=== PATIENT | female | born 1965 | race Two or more races ===

== ENCOUNTER 2022-01-18 15:54 | Outpatient (REF) | payer OTHER, SELFPAY ==
--- NOTE | ~2022-01-18 | XR_ITS ---
EXAMINATION: XR CHEST CLINICAL INFORMATION: J45.909 - Unspecified asthma, uncomplicated COMPARISON: None TECHNIQUE: 2 views of the chest were obtained. FINDINGS: The lungs are clear. Heart size normal. Vascularity normal. No hyperinflation, infiltrate, or effusion. The hilar and mediastinal contours are normal. No visible acute bony abnormality. XR/XR chest 2V IMPRESSION: Unremarkable examination.
== END 2022-01-18 15:55 | disposition home or self-care (01) ==
LOC: HO.XRAY 15:54
PROVIDERS: PCP Internal Medicine Endocrinology, Diabetes & Metabolism; Visit Provider Hospitalist
DX: J45.909 Unspecified asthma, uncomplicated (principal); C50.919 Malignant neoplasm of unspecified site of unspecified female breast
CPT/HCPCS: 71046

== ENCOUNTER 2023-01-30 13:40 | Outpatient (REF) | payer OTHER, MEDICAID, SELFPAY | END 2023-01-30 13:41 | disposition home or self-care (01) | LOC: HO.XRAY 13:40 | PROVIDERS: PCP Internal Medicine Endocrinology, Diabetes & Metabolism; Visit Provider Hospitalist | DX: J45.909 Unspecified asthma, uncomplicated (principal); R05.9 Cough, unspecified; R21 Rash and other nonspecific skin eruption | CPT/HCPCS: 71046 ==

== ENCOUNTER 2023-11-28 13:53 | Outpatient (AMB) | payer OTHER, MEDICAID, SELFPAY ==
[2023-11-28 14:05] VITALS: PULSE 88; O2SAT 98; BMI 44.9
--- NOTE | 2023-11-28 14:05 | MHC.OFFVIS ---
Vital Signs 11/28/23 14:05 Height 5 ft 3 in Weight 253 lb 12.033 oz BMI 44.9 Pulse 88 Pulse Source Pulse Oximeter Pulse Oximetry (%) 98 Oxygen Delivery Method Room Air Intake Visit Reasons: asthma Web Application Tester Required: No Allergies Lisinopril Allergy (Unknown, Uncoded 11/28/23 14:07) Cough HPI Comments Details: 01/18/2022 the patient is here for a pulmonary follow-up visit. The patient is a 58-year-old woman with a known history of asthma and recently was diagnosed with breast cancer. She did undergo surgery. Her cancer was both ER and NV positive. Therefore she was placed on hormonal therapy. The patient will continue following closely with her oncologist and surgeon. Seems to be recovering well. No evidence of any residual cancer. In the meantime she has been having worsening shortness of breath and wheezing. She feels is related to the allergy season. She was taken Symbicort in addition to a short-acting beta agonists. However, she ran out of her medication. Therefore the patient came in to be further evaluated. Currently she is feeling better. Will make sure she has all her medications available. I did not see an x-ray when I did review the imaging studies of [facility]. Specially with history of breast cancer and her worsening symptms of shortness of breath. He will have an x-ray prior to leaving the process. Otherwise the patient continues to respond well to her therapy will follow-up in a year's time. 01/30/2023 the patient is here for pulmonary follow-up visit. Overall the patient has been doing okay. She had a bad bout in the springtime with her allergies. She was taking the Symbicort and also required her rescue inhaler often. Now things are getting a little better. She still has a cough that is bothering her. She was given codeine and also Dr. Most sweet but does not appear to be effective. She does complaint of a dry cough moderate severity. Already feeling a little better since the allergies are settling down. During that episode she was also having some pleuritic chest discomfort although is better at this time. The the will plan to continue her on Symbicort and she seems to be doing better and she needs to continue with the allergy medicine including Singulair and antihistamine therapy. Will consider adding a muscarinic antagonist in the future if she continues to be symptomatic. Otherwise follow-up in the springtime usually when does this when she has worse symptoms. 11/28/2023 the patient is here for a pulmonary follow-up visit. Overall she is doing well. She does complaint during the season because her breathing gets worse. Typically the spring causes some more symptoms. She also complains of some raspiness of her voice. Typically when she lays down. We did talk about potential nasal congestion and postnasal drip that could be contributing to her symptoms. We did talk about trying Neti bottle which she is willing to try as long as she uses distilled water. The patient has been cancer free now for more than a year which is reassuring. She continues on the Symbicort is the seems to work best. She did not tolerate the breztri inhaler because it caused additional cough. Therefore she will continue with current respiratory therapy in addition to her allergy medicines. [facility] Medical History (Updated 11/28/23 @ 19:26 by Joby Palmer MD) Chronic allergic rhinitis Cough Social History (Updated 01/18/22 @ 15:32 by SHAISTA Cherry) Patient Tobacco Use Status: Former Tobacco user Tobacco use type: Cigarette Years Smoked: 20 Years Review of Systems Const Denies fever(s) and Denies malaise Eyes Denies change in vision ENT Reports nasal congestion, Reports nasal discharge and Reports post nasal drip Card Denies palpitations Resp Reports cough and Reports wheezing GI Reports no additional complaints Musc Reports no additional complaints Skin/Breast Denies rash Endo Denies palpitations Rosalio/Lymph Reports as per HPI Aller/Immun Reports wheezing Physical Exam Vital Signs: Last Vital Signs Pulse 88 11/28/23 14:05 Pulse Ox 98 11/28/23 14:05 Oxygen Delivery Method Room Air 11/28/23 14:05 BMI result Body Mass Index 44.9 Const General: alert Orientation/consciousness: patient oriented x3 Neck Neck: Yes supple Chest Chest palpation & inspection: normal inspection of the chest Resp Auscultation: clear to auscultation bilaterally, no rhonchi and no wheezes Cardio Rate: regular rate Rhythm: regular rhythm Heart sounds: S1 normal heart sound present and S2 normal heart sound present GI Inspection: Yes normal to inspection Skin General skin exam: other ( evidence of acanthosis nigricans primarily in her upper extremities) Neuro General: patient oriented x3 Extrem General: Yes normal to inspection and Yes no clubbing, cyanosis or edema Assessment & Plan Assessment & Plan (1) Asthma: Code(s): J45.909 - Unspecified asthma, uncomplicated Category: Medical Qualifiers: Asthma complication type: uncomplicated Asthma persistence: persistent Asthma severity: moderate Qualified Code(s): J45.40 - Moderate persistent asthma, uncomplicated (2) Chronic allergic rhinitis: Code(s): J30.9 - Allergic rhinitis, unspecified Category: Medical (3) Rash and nonspecific skin eruption: Comment: stable Code(s): R21 - Rash and other nonspecific skin eruption Category: Medical (4) Breast cancer: Code(s): C50.919 - Malignant neoplasm of unspecified site of unspecified female breast Category: Medical Qualifiers: Breast location: unspecified site of breast Estrogen receptor status: unspecified Laterality: unspecified laterality Patient sex: female Qualified Code(s): C50.919 - Malignant neoplasm of unspecified site of unspecified female breast Plan continue Symbicort short-acting beta agonists chest x-ray 2022 stable benzonates for cough zyrtec singulair trial rahul med sinus rinse with distilled water F/U 10-12 months Orders: Orders Pneumococcal 20 Immunization Today Z23 - Encounter for immunization Coding Level of Care Code Est Pt Level 4 (71835) Diagnoses Moderate persistent asthma without complication J45.40 Asthma complication type: uncomplicated Asthma persistence: persistent Asthma severity: moderate Chronic allergic rhinitis J30.9 Rash and nonspecific skin eruption R21 Malignant neoplasm of female breast, unspecified estrogen receptor status, unspecified laterality, unspecified site of breast C50.919 Breast location: unspecified site of breast Estrogen receptor status: unspecified Laterality: unspecified laterality Patient sex: female Time Spent (min) 16
== END 2023-11-28 14:24 | disposition home or self-care (01) ==
PROVIDERS: PCP Internal Medicine Endocrinology, Diabetes & Metabolism; Visit Provider Hospitalist
DX: J45.40 Moderate persistent asthma, uncomplicated (principal); J30.9 Allergic rhinitis, unspecified; R21 Rash and other nonspecific skin eruption; C50.919 Malignant neoplasm of unspecified site of unspecified female breast; Z23 Encounter for immunization
CPT/HCPCS: 99214

== ENCOUNTER → 2023-11-28 13:53 | Outpatient (BNVA) | payer OTHER, SELFPAY | PROVIDERS: PCP Internal Medicine Endocrinology, Diabetes & Metabolism; Visit Provider Hospitalist | DX: J45.40 Moderate persistent asthma, uncomplicated (principal); J30.9 Allergic rhinitis, unspecified; R21 Rash and other nonspecific skin eruption; C50.919 Malignant neoplasm of unspecified site of unspecified female breast; Z79.899 Other long term (current) drug therapy; Z23 Encounter for immunization | CPT/HCPCS: 90471; 90677 ==

== ENCOUNTER 2024-11-29 13:32 | Outpatient (AMB) | payer OTHER, SELFPAY ==
[2024-11-29 13:37] VITALS: BP 158/96; PULSE 93; O2SAT 97; BMI 43.7
--- NOTE | 2024-11-29 13:37 | A.OFFVIS_ITS ---
Vital Signs 11/29/24 13:37 Height 5 ft 3 in Weight 246 lb 14.684 oz BMI 43.7 BP 158/96 H Blood Pressure Location Lt brachial Position Sitting Pulse 93 Pulse Source Pulse Oximeter Pulse Oximetry (%) 97 Oxygen Delivery Method Room Air Intake Visit Reasons: 1yr f/u Asthma Allergies oxycodone Allergy (Mild, Uncoded 11/29/24 13:42) Itching Lisinopril Allergy (Unknown, Uncoded 11/28/23 14:07) Cough HPI Comments Details: 01/18/2022 the patient is here for a pulmonary follow-up visit. The patient is a 58-year-old woman with a known history of asthma and recently was diagnosed with breast cancer. She did undergo surgery. Her cancer was both ER and [place] positive. Therefore she was placed on hormonal therapy. The patient will continue following closely with her oncologist and surgeon. Seems to be recovering well. No evidence of any residual cancer. In the meantime she has been having worsening shortness of breath and wheezing. She feels is related to the allergy season. She was taken Symbicort in addition to a short-acting beta agonists. However, she ran out of her medication. Therefore the patient came in to be further evaluated. Currently she is feeling better. Will make sure she has all her medications available. I did not see an x-ray when I did review the imaging studies of [facility]. Specially with history of breast cancer and her worsening symptms of shortness of breath. He will have an x-ray prior to leaving the process. Otherwise the patient continues to respond well to her therapy will follow-up in a year's time. 01/30/2023 the patient is here for pulmonary follow-up visit. Overall the patient has been doing okay. She had a bad bout in the springtime with her allergies. She was taking the Symbicort and also required her rescue inhaler often. Now things are getting a little better. She still has a cough that is bothering her. She was given codeine and also Dr. Most sweet but does not appear to be effective. She does complaint of a dry cough moderate severity. Already feeling a little better since the allergies are settling down. During that episode she was also having some pleuritic chest discomfort although is better at this time. The the will plan to continue her on Symbicort and she seems to be doing better and she needs to continue with the allergy medicine including Singulair and antihistamine therapy. Will consider adding a muscarinic antagonist in the future if she continues to be symptomatic. Otherwise follow-up in the springtime usually when does this when she has worse symptoms. 11/28/2023 the patient is here for a pulmonary follow-up visit. Overall she is doing well. She does complaint during the season because her breathing gets w orse. Typically the spring causes some more symptoms. She also complains of some raspiness of her voice. Typically when she lays down. We did talk about potential nasal congestion and postnasal drip that could be contributing to her symptoms. We did talk about trying Neti bottle which she is willing to try as long as she uses distilled water. The patient has been cancer free now for more than a year which is reassuring. She continues on the Symbicort is the seems to work best. She did not tolerate the breztri inhaler because it caused additional cough. Therefore she will continue with current respiratory therapy in addition to her allergy medicines. 11/29/2024 the patient is here for pulmonary follow-up visit. Overall the patient has been doing okay from a respiratory status. She is having more allergy symptoms. Has significant nasal congestion postnasal drip and cough. Also getting some inflammation around the eyes. The patient does take Zyrtec with partial improvement of the symptoms and recently started taking fluticasone with also some improvement. She was seen Allergy in the past but they subsequently retired so will go ahead and refer her to Dr. Covington. In the meantime she continues on her respiratory therapy with good effect for her asthma. Seems to be in good control. From a breast cancer standpoint the patient did well and she is still in remission doing very well and she recently had her hysterectomy and oophorectomy because of increased risk for cancer. The patient also complains of significant dyspepsia. She had a barium swallow or endoscopy before and she was told that everything was okay. She does take omeprazole therefore, will add a H2 genevieve that she can take at nighttime to help her with her dyspepsia but also help with her allergies. [facility] Medical History (Updated 12/01/24 @ 22:48 by Joby Palmer MD) Allergies Chronic allergic rhinitis Cough Surgical History (Updated 11/29/24 @ 13:53 by Nelda Agarwal CMA) H/O tubal ligation History of hysterectomy History of lumpectomy of right breast H/O gastric sleeve H/O hernia repair Social History Patient Tobacco Use Status: Former Tobacco user Tobacco use type: Cigarette Years Smoked: 20 Years Review of Systems Const Denies chills, Denies fatigue, Denies fever(s), Denies weight gain and Denies weight loss Eyes Denies change in vision ENT Denies dizziness Card Denies chest pain, Denies leg edema, Denies lightheadedness, Denies palpitations, Reports dyspnea on exertion, Denies orthopnea and Denies other Resp Reports cough, Reports dyspnea on exertion and Reports wheezing GI Denies hematochezia and Denies change in stool character Musc Denies abnormal gait, Denies muscle weakness, Denies numbness, Denies radiating pain into limb and Denies tingling Skin/Breast Denies rash Neuro Denies abnormal gait, Denies dizziness, Denies numbness and Denies tingling Endo Denies fatigue and Denies palpitations Rosalio/Lymph Reports as per HPI Aller/Immun Reports wheezing Physical Exam Vital Signs: Last Vital Signs Pulse 93 11/29/24 13:37 BP 158/96 H 11/29/24 13:37 Pulse Ox 97 11/29/24 13:37 Oxygen Delivery Method Room Air 11/29/24 13:37 BMI result Body Mass Index 43.7 Const General: alert Orientation/consciousness: patient oriented x3 Neck Neck: Yes supple Chest Chest palpation & inspection: normal inspection of the chest Resp Auscultation: clear to auscultation bilaterally, no rhonchi and no wheezes Cardio Rate: regular rate Rhythm: regular rhythm Heart sounds: S1 normal heart sound present and S2 normal heart sound present GI Inspection: Yes normal to inspection Skin General skin exam: other ( evidence of acanthosis nigricans primarily in her upper extremities) Neuro General: patient oriented x3 Extrem General: Yes normal to inspection and Yes no clubbing, cyanosis or edema Assessment & Plan Assessment & Plan (1) Asthma: Code(s): J45.909 - Unspecified asthma, uncomplicated Category: Medical Qualifiers: Asthma complication type: uncomplicated Asthma persistence: persistent Asthma severity: moderate Qualified Code(s): J45.40 - Moderate persistent asthma, uncomplicated (2) Chronic allergic rhinitis: Code(s): J30.9 - Allergic rhinitis, unspecified Category: Medical (3) Rash and nonspecific skin eruption: Comment: stable Code(s): R21 - Rash and other nonspecific skin eruption Category: Medical (4) Breast cancer: Code(s): C50.919 - Malignant neoplasm of unspecified site of unspecified female breast Category: Medical Qualifiers: Breast location: unspecified site of breast Estrogen receptor status: unspecified Laterality: unspecified laterality Patient sex: female Qualified Code(s): C50.919 - Malignant neoplasm of unspecified site of unspecified female breast (5) Allergies: Code(s): T78.40XA - Allergy, unspecified, initial encounter Category: Medical Qualifiers: Encounter type: initial encounter Qualified Code(s): T78.40XA - Allergy, unspecified, initial encounter Plan continue Symbicort short-acting beta agonists chest x-ray 2022 stable benzonates for cough zyrtec singulair start Cimetidine startAsteline nasal spray Allergy referral F/U 10-12 months Orders: Referrals Allergy & Immunology Referral J30.9 - Allergic rhinitis, unspecified, J45.909 - Unspecified asthma, uncomplicated, T78.40XA - Allergy, unspecified, initial encounter Medications: New azelastine administer into each nostril 2 sprays intranasal BID 30 mL 6RF 30 days cimetidine 800 mg PO BEDTIME 30 tabs 6RF 30 days Coding Level of Care Code Est Pt Level 4 (55914) Diagnoses Moderate persistent asthma without complication J45.40 Asthma complication type: uncomplicated Asthma persistence: persistent Asthma severity: moderate Chronic allergic rhinitis J30.9 Rash and nonspecific skin eruption R21 Malignant neoplasm of female breast, unspecified estrogen receptor status, unspecified laterality, unspecified site of breast C50.919 Breast location: unspecified site of breast Estrogen receptor status: unspecified Laterality: unspecified laterality Patient sex: female Allergy, initial encounter T78.40XA Encounter type: initial encounter Time Spent (min) 16
--- OUTSIDE RECORDS SUMMARY | 2024-11-29 14:16 | XMS_ITS | Clinical Summary ---
Author Organization [address] [place] [address] Address [address] [place] [address] Phone Care Team Providers Care Grounds Restoration Specialist Name Role Phone Cally Dietz MD Primary Care Provid er Allergies Active Allergy Reactions Criticality Noted Date Comments Lisinopril 03/28/2017 Oxycodone Nausea And Vomiting 05/07/2024 Shellfish Derived 03/28/2017 Medications albuterol HFA (PROAIR HFA ; PROVENTIL HFA ; VENTOLIN HFA) 90 mcg/actuation inhaler Inhale 2 Puffs into the lungs every 4 hours as needed for Wheezing. 0 Active amitriptyline (ELAVIL) 25 mg tablet Take 1 Tablet by mouth daily. 4 Active anastrozole (ARIMIDEX) 1 mg Take 1 Tablet by mouth daily. 4 Active budesonide-form oteroL (SYMBICORT) 160-4.5 mcg/actuation inhaler INHALE 2 PUFFS BY MOUTH TWICE DAILY. RINSE MOUTH AFTER USE 7 Active EPINEPHrine (EpiPen 2-Donald) 0.3 mg/0.3 mL injection 0.3 mg mL. 7 Active escitalopram (LEXAPRO) 10 mg tablet Take 1 Tab by mouth daily. 0 Active hydroCHLOROthia zide (HYDRODIURIL) 25 mg tablet Take 1 Tab by mouth daily. 0 Active LORazepam (ATIVAN) 0.5 mg tablet Take 1 Tab by mouth 2 times daily as needed for Anxiety. 1 Active losartan (COZAAR) 50 mg tablet 1 Tablet. 7 Active montelukast (SINGULAIR) 10 mg tablet 1 Tablet. 7 Active omeprazole (PriLOSEC) [address] capsule Take 1 Capsule by mouth daily. 4 Active topiramate (TOPAMAX SPRINKLE) 25 mg capsule TAKE 1 CAPSULE BY MOUTH TWICE DAILY DIRECTED 4 Active valsartan-hydro CHLOROthiazide (DIOVAN-HCT) 320-25 mg per tablet Take 1 Tablet by mouth daily. 4 Active semaglutide (Wegovy) 1 mg/0.5 mL injection pen ADMINISTER 1 MG UNDER THE SKIN WEEKLY DIRECTED 4 Active Active Problems Problem Noted Date Diagnosed Date Anxiety disorder 07/17/2024 Depression 07/17/2024 Fibromyalgia 07/17/2024 Proteinuria 07/23/2010 Essential hypertension, benign 05/07/2010 Immunizations Name Administration Dates Next Due Hepatitis B (Ceoescn-Z-Rrfnp , Recombivax HB-Adult) 19yo and older 09/21/2010 Influenza trivalent, 0.5mL, preservative free (Fluarix; FluLaval; Fluzone) ages 6mo and older (Afluria) 3 years and older 04/23/2010 Tdap Tetanus diptheria acell ular pertussis (Boostrix; Adacel) 7yo and older 07/23/2010 Surgical History Surgery Date Site/Laterality Comments TUBAL LIGATION PROCEDURE: HISTORICAL TUBAL LIGATION OTHER SURGICAL HISTORY PROCEDURE: [place] LYSIS OF ADHESIONS SALPINX/OVARY WISDOM TOOTH EXTRACTION PROCEDURE: HISTORICAL WISDOM TEETH EXTRACTION OTHER SURGICAL HISTORY 2020 Right PROCEDURE: HISTORY OTHER; COMMENT: mastectomy Medical History Medical History Date Comments Fibromyalgia DX:Fibromyalgia Asthma DX:Asthma Anxiety disorder DX:Anxiety diso rder Depression DX:Depression Family history of diabetes mellitus 07/16/2010 DX:Family history of diabetes mellitus Proteinuria 07/23/2010 DX:Proteinuria Family History Medical History Relation Name Comments Diabetes Aunt 1 Maternal Diabetes Brother 1 Diabetes Father Stroke Father Diabetes Maternal Grandmother Stroke Mother Other cancer Mother's side 1 Relation Name Status Comments Aunt 1 Aunt 2 Brother 1 Brother 2 Father Maternal Grandmother Mother Mother's side 1 Mother's side 2 Social History Tobacco Use Types Packs/Day Years Used Date Smoking Tobacco: Former Smokeless Tobacco: Never Alcohol Use Standard Drinks/Week Comments No 0 (1 standard drink = 0.6 oz pur e alcohol) Comments Unknown Sex and Gender Information Value Date Recorded Sex Assigned at Not on file Legal Sex Female 8:27 AM EST Gender Identity Not on file Sexual Orientation Not on file Obstetrics History Last Filed Vital Signs Vital Sign Reading Time Taken Comments Blood Pressure 115/81 05/07/2024 9:56 AM EDT Pulse 94 05/07/2024 9:56 AM EDT Temperature - - Respiratory Rate - - Oxygen Saturation - - Inhaled Oxygen Concentration - - Weight 106 kg (234 lb 6.4 oz) 05/07/2024 9:56 AM EDT Height 160 cm (5' 3 ) 05/07/2024 9:56 AM EDT Body Mass Index 41.52 05/07/2024 9:56 AM EDT Plan of Treatment Upcoming Encounters Date Type Department Care Team (Late st Contact Info) Description 12/03/2024 11:30 AM EDT Office Visit General Surgery - [facility] [address] [facility] [address] [place] [phone] Starr Ha MD [address] [facility] [address] [place] [address] Health Maintenance Due Date Last Done Comments Breast Cancer Screening 1966 COVID-19 Vaccine (#1) 1971 Hepatitis B Vaccines (2 of 3 - 19+ 3-dose series) 10/19/2010 09/21/2010 Cervical Cancer Screening: P ap Smear 02/26/2013 02/26/2010 Pneumococcal Vaccine: 50+ Ye ars (1 of 1 - PCV) 2016 Zoster Vaccines (1 of 2) 2016 DTaP,Tdap,and Td Vaccines (2 - Td or Tdap) 07/23/2020 07/23/2010 Cholesterol Screening (Lipid Panel) 07/10/2022 07/17/2010 Colorectal Cancer Screening: Colonoscopy 07/10/2022 Depression Screening 07/10/2022 HIV Screening 07/10/2022 Hepatitis C Screening 07/10/2022 Social Influencers of Health Screening 07/10/2022 Hypertension/CHF/CAD Annual BMP Blood Test 07/23/2022 07/17/2010 Influenza Vaccine (Season Ended) 2025 04/23/20 10 HIB Vaccines Aged Out No longer eligi ble based on patient's age to complete this topic HPV Vaccines Aged Out No longer eligi ble based on patient's age to complete this topic Hepatitis A Vaccines Aged Out No long er eligible based on patient's age to complete this topic IPV Vaccines Aged Out No longer eligi ble based on patient's age to complete this topic MMR Vaccines Aged Out No longer eligi ble based on patient's age to complete this topic Meningococcal ACWY Vaccine Aged Out N o longer eligible based on patient's age to complete this topic Meningococcal B Vaccine Aged Out No l onger eligible based on patient's age to complete this topic Pneumococcal Vaccine: Pediat rics (0 to 5 Years) and At-Risk Patients (6 to 64 Years) Aged Out No longer eligi ble based on patient's age to complete this topic RSV Immunization Patients Un ryan 20 months Aged Out No longer eligible b ased on patient's age to complete this topic Varicella Vaccines Aged Out No longer eligible based on patient's age to complete this topic Procedures Procedure Name Priority Date/Time Associated Diagnosis Comments ANNUAL BMP BLOOD TEST Routine 07/17/2010 LIPID PANEL Routine 07/17/2010 PAP SMEAR Routine 02/26/2010 from Last 3 Months or Most Recently Relevant to Health Maintenance Results * Annual BMP Blood Test (07/17/2010) [facility] Annual BMP Blood Test Abstracted [facility] Provider HEALTH MAINTENANCE Final Result * (ABNORMAL) Lipid panel (07/17/2010) [facility] LDL/HDL Ratio 4 0 - 4 Triglycerides 92 0 - 150 mg/dL Cholesterol 187 0 - 200 mg/dL HDL 45 >=40 mg/dL LDL Cholesterol 124(A) 0 - 100 mg/dL Blood Venous blood specimen / Unknown [facility] Provider LAB BLOOD ORDERABLES Emani l Result * Pap Smear (02/26/2010) [facility] Pap smear Negative, Abstracted [facility] Provider HEALTH MAINTENANCE Final Result from Last 3 Months or Most Recently Relevant to Health Maintenance Insurance [facility] Care Teams Grounds Restoration Specialist Relationship Specialty Start Date End Date Cally Dietz MD [address] [place] [address] [address] [place] [phone] PCP - General Endocrinology 07/17/24
--- OUTSIDE RECORDS SUMMARY | 2024-11-29 14:16 | XMS_ITS | Continuity of Care Document ---
Author Organization [facility] Address [address] [place] [address] Phone [phone] Care Team Providers Care Advanced Clinical Specialist Name Role Phone Cally Dietz M.D. 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 Ons et: 10/27/2022 Gastroesophageal reflux disease Cally Gregg M.D. Onset: 10/27/2022 Essential hypertension Niesha Barraza Onset: 10/27/2022 Asthma Cally Dietz M.D. Ons et: 10/27/2022 Fibromyalgia Cally Dietz M.D. Ons et: 10/27/2022 Migraine Cally Dietz M.D. Ons et: 10/27/2022 Proteinuria Cally Dietz M.D. Ons et: 10/27/2022 Obesity Cally Dietz M.D. Ons et: 10/27/2022 Obstructive sleep apnea syndrome Cally Quesada M.D. Onset: 10/27/2022 Bursitis of hip Cally Dietz M.D. Ons et: 10/27/2022 Osteoarthritis aClly Dietz M.D. Ons et: 10/27/2022 Intraductal carcinoma in sit u of right breast Cally Dietz M.D. Onset: 10/27/2022 Prediabetes Cally Dietz M.D. Ons et: 10/27/2022 Depressive disorder Cally Dietz M.D. 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 09/09/2024 Z68.42 Hsusnvomf582-0.5mcg/Act Aerosol inhale 2 puffs by mouth twice daily 10.2units Cally Dietz M.D. 08/17/2023 Egnpzresp130so Tablets 1 tablet by mouth five times daily for 5 days while awake 25tabs Cally Dietz M.D. 06/16/2023 [facility] Vitamin [id number] Tablets 1 by mouth every day Cally Dietz M.D. 06/13/[address] Take 1 Capsul e By Mouth Every Day 90caps Cally Dietz M.D. 10/27/2022 Escitalopram Txbeoqb16qm Tablets Take 1 Tablet By Mouth Every Day 90fito Dietz M.D. 10/21/2022 Valsartan-Hydrochlorothiazid e 320-25mg Tablets Take 1 Tablet By Mouth Every Day 90fito Dietz M.D. 10/21/2022 Amitriptyline BHD65jj Tablets Take 1 Tab let By Mouth Every Day 90fito Dietz M.D. 07/27/2022 Hydroxyzine CFM11si Tablets Take 1 Table t By Mouth Twice A Day as Needed 60tacoby Dietz M.D. 07/27/2022 Hlgutyjfesl7pb Tablets Take 1 Tablet By Mouth Every Day Unknown Montelukast Slptmd90zr Tablets 1 by mouth every day Unknown Multivitamin AdultsTablets 1 by mouth every day Cally Dietz M.D. Vitamin H518cgv (1000 Ut) Capsules 1 by mouth every day 100caps Cally Dietz M.D. Cetirizine SCO64os Tablets 1 every day a s needed Cally Dietz M.D. Lorazepam0.5mg Tablets take 1 tablet by mouth every 6 hours as needed 30tabs Cally Dietz M.D. Albuterol Sulfate(2.5mg/3ML) 0.083% Nebulizer Inhale 3 ML Via Nebulizer Every 6 Hours as Needed For Shortness Of Breath Or Whe Spencer, Joby Vnhstzmieo55fj Caps Sprinkle Take 1 Caps ule By Mouth Twice Daily as Directed 180caps Cally Dietz M.D. History Medications Tfqgvm3yg/0.5ML Solution Auto-Inject inject 1 mg weekly as directed 2ml E66Zarina Dietz M.D. 02/19/2024 - 09/09/2024 Z68.42 Wegovy0.5mg/0.5ML Solution Auto-Inject inject 0.5 mg weekly for one month 2ml E66Zarina Dietz M.D. 12/18/2023 - 02/19/2024 Z68.42 Vital Signs Date Vital Result Comment 08/20/2024 9:00am BP Systolic 104 mmHg BP Diastolic 70 mmHg Heart Rate 94 /min Height 63.5 inches 5'3.50 Weight 243.38 lb BMI (Body Mass Index) 42.4 kg/m2 Results Test Acquired Date Facility Test Result H/L Range Note Basic Metabolic Panel (8) 08/20/2024 [facility] Glucose 80 mg/dL 70-99 BUN 15 mg/dL 6-24 Sodium 144 mmol/L 134-144 Potassium 4.4 mmol/L 3.5-5.2 Chloride 109 mmol/L High 96-106 Carbon Dioxide, Total 20 mmol/L 20-29 Calcium 10.0 mg/dL 8.7-10. 2 Creatinine 1.09 mg/dL High 0.57-1. 00 eGFR 59 mL/min/1.7 3 Low >59 BUN/Creatinine Ratio 14 9-23 Comp. Metabolic Panel (14) 04/06/2024 [facility] Glucose 95 mg/dL 70-99 BUN 27 mg/dL High 6-24 Creatinine 1.38 mg/dL High 0.57-1. 00 eGFR 45 mL/min/1.7 3 Low >59 BUN/Creatinine Ratio 20 9-23 Sodium 141 mmol/L 134-144 Potassium 4.0 mmol/L 3.5-5.2 Chloride 105 mmol/L 96-106 Carbon Dioxide, Total 23 mmol/L 20-29 Calcium 10.5 mg/dL High 8.7-10. 2 1 Protein, Total 6.5 g/dL 6.0-8.5 Albumin 4.2 g/dL 3.8-4.9 Globulin, Total 2.3 g/dL 1.5-4.5 Bilirubin, Total 0.2 mg/dL 0.0-1.2 Alkaline Phosphatase 95 IU/L 44-121 Ast (Sgot) 12 IU/L 0-40 Alt (SGPT) 11 IU/L 0-32 Lipid Panel 04/06/2024 [facility] Cholesterol, Total 209 mg/dL High 100-199 Triglycerides 130 mg/dL 0-149 HDL Cholesterol 50 mg/dL >39 VLDL Cholesterol Kurt 23 mg/dL 5-40 LDL Chol Calc (Nih) 136 mg/dL High 0-99 LDL Calc Comment: TNP Hemoglobin A1c 04/06/2024 [facility] Hemoglobin A1c 5.8 % High 4.8-5.6 2 CBC With Differential/Sabina telet 04/06/2024 [facility] WBC 7.9 x10E3/uL 3.4-10. 8 RBC 4.62 x10E6/uL 3.77-5. 28 Hemoglobin 12.6 g/dL 11.1-15 .9 Hematocrit 39.1 % 34.0-46 .6 MCV 85 fL 79-97 MCH 27.3 pg 26.6-33 .0 MCHC 32.2 g/dL 31.5-35 .7 RDW 14.3 % 11.7-15 .4 Platelets 343 x10E3/uL 150-450 Neutrophils 61 % Not Estab. Lymphs 31 % Not Estab. Monocytes 6 % Not Estab. Eos 1 % Not Estab. Basos 0 % Not Estab. Immature Cells TNP Neutrophils (Absolute) 4.9 x10E3/uL 1.4-7.0 Lymphs (Absolute) 2.5 x10E3/uL 0.7-3.1 Monocytes(Absol three affiliated) 0.4 x10E3/uL 0.1-0.9 Eos (Absolute) 0.1 x10E3/uL 0.0-0.4 Baso (Absolute) 0.0 x10E3/uL 0.0-0.2 Immature Granulocytes 1 % Not Estab. Immature Grans (Abs) 0.0 x10E3/uL 0.0-0.1 NRBC TNP Hematology Comments: TNP Vitamin D, 25-Hydroxy 04/06/2024 [facility] Vitamin D, 25-Hydroxy 40.2 ng/mL 30.0-10 0.0 3 Comp. Metabolic Panel (14) 11/27/2023 [facility] Glucose 99 mg/dL 70-99 BUN 25 mg/dL High 6-24 Creatinine 1.06 mg/dL High 0.57-1. 00 eGFR 61 mL/min/1.7 3 >59 BUN/Creatinine Ratio 24 High 9-23 Sodium 142 mmol/L 134-144 Potassium 4.0 mmol/L 3.5-5.2 Chloride 104 mmol/L 96-106 Carbon Dioxide, Total 21 mmol/L 20-29 Calcium 10.3 mg/dL High 8.7-10. 2 4 Protein, Total 7.0 g/dL 6.0-8.5 Albumin 4.4 g/dL 3.8-4.9 Globulin, Total 2.6 g/dL 1.5-4.5 A/G Ratio 1.7 1.2-2.2 Bilirubin, Total <0.2 mg/dL 0.0-1.2 Alkaline Phosphatase 100 IU/L 44-121 Ast (Sgot) 18 IU/L 0-40 Alt (SGPT) 19 IU/L 0-32 Vitamin B12 11/27/2023 [facility] Vitamin B12 >2000 pg/mL High 232-124 5 Hemoglobin A1c 08/18/2023 Inhouse Hemoglobin A1c 5.9% Complete Abc With Diff 06/07/2023 [facility] WBC 10.0 K/MM3 (4.0-11 .0) RBC 4.97 M/MM3 (4.20-5 .40) HGB 12.9 GM/DL (11.7-1 5.5) HCT 42.0 % (35.7-4 5.8) MCV 84.5 FL (80.0-1 00.0) MCH 26.0 pg Low (27.0-3 4.0) MCHC 30.7 g/dL Low (33.0-3 7.0) PLT 332 K/MM3 (150-46 0) RDW-SD 45.1 FL (<47.0) MPV 9.8 FL (9.4-12 .4) Automated NRBC 0.0 #/100WBC'S Abs. NRBC 0.0 K/MM3 Neut # 8.1 K/MM3 High (1.3-7. 0) Lymph # 0.9 K/MM3 (0.8-3. 1) Arroyo# 0.8 K/MM3 (0.4-0. 9) Eo # 0.1 K/MM3 (0.0-0. 4) Baso # 0.0 K/MM3 (0.0-0. 1) Abs. Imm Gran 0.1 K/MM3 Neut 81.6 % High (44-76) Lymph 9.1 % Low (15-43) Monocyte 7.8 % (4.5-10 .5) Eo 0.6 % (0-6) Baso 0.1 % (0-2) Imm Gran 0.8 % Methylmalonic Acid, Serum 06/07/2023 [facility] Methylmalonic Acid, Serum 377 5 Vitamin B12 06/07/2023 [facility] Vitamin B12 268 pg/mL (232-12 45) TSH With Reflex To FT4 06/07/2023 [facility] TSH With Reflex To FT4 1.01 uIU/mL (0.4-4. 2) Hemoglobin A1c 06/07/2023 [facility] Hemoglobin A1c 5.9 % High (4.0-5. 6) 6 Comprehensive Metabolic Panl 06/07/2023 [facility] Glucose 104 mg/dL High (70-99) BUN 22 mg/dL High (6-20) Creatinine 1.1 mg/dL High (0.5-1. 0) Sodium 140 mmol/L (133-14 5) Potassium 4.0 mmol/L (3.6-5. 2) Chloride 104 mmol/L (98-107 ) Bicarbonate 24 mmol/L (22-29) Anion Gap 12 (4-17) Albumin 4.5 GM/DL (3.4-4. 8) Calcium 10.0 mg/dL (8.6-10 .5) Bilirubin,Total 0.2 mg/dL (0-1.2 ) Total Protein 6.9 GM/DL (6.2-8. 2) Ag Ratio 1.9 Ast 14 U/L (0-32) Alk Phos 113 U/L High (35-104 ) Alt 11 U/L (0-33) Estimated GFR Creatinine 57 ML/MIN/1.7 3M2 7 Urinalysis Complete 05/08/2023 [facility] Appear/Color LIGHT YELLOW 8 SP. Hindman 1.018 (1.002- 1.030) Urine PH 7.0 (5.0-8. 0) Urine Albumin NEGATIVE (Neg) Urine Glucose NEGATIVE (Neg) Urine Ketones NEGATIVE (Neg) Urine Bilirubin NEGATIVE (Neg) Urine Hemoglobin NEGATIVE (Neg) Urine Nitrite NEGATIVE (Neg) Urine Leukocyte TRACE Abnormal (Neg) Urobilinogen NORMAL mg/dL (Norm) Urine WBCs 1 /HPF (0-5) Urine RBCs 2 /HPF (0-3) Mucus SLIGHT /LPF Squamous Epith 7 /HPF (0-8) Basic Metabolic Panel 05/08/2023 [facility] Glucose 86 mg/dL (70-99) BUN 24 mg/dL High (6-20) Creatinine 1.2 mg/dL High (0.5-1. 0) Sodium 141 mmol/L (133-14 5) Potassium 4.5 mmol/L (3.6-5. 2) Chloride 105 mmol/L (98-107 ) Bicarbonate 27 mmol/L (22-29) Anion Gap 9 (4-17) Calcium 10.4 mg/dL (8.6-10 .5) Estimated GFR Creatinine 55 ML/MIN/1.7 3M2 9 Urinalysis Complete 10/27/2022 [facility] Appear/Color LIGHT YELLOW 10 SP. Hindman 1.026 (1.002- 1.030) Urine PH 5.5 (5.0-8. 0) Urine Albumin TRACE Abnormal (Neg) Urine Glucose NEGATIVE (Neg) Urine Ketones NEGATIVE (Neg) Urine Bilirubin NEGATIVE (Neg) Urine Hemoglobin NEGATIVE (Neg) Urine Nitrite NEGATIVE (Neg) Urine Leukocyte 3+ Abnormal (Neg) Urobilinogen NORMAL mg/dL (Norm) Urine WBCs 13 /HPF High (0-5) Urine RBCs 1 /HPF (0-3) Bacteria SLIGHT HPF Abnormal (Neg) Mucus SLIGHT /LPF Squamous Epith 5 /HPF (0-8) Comprehensive Metabolic Panl 10/27/2022 [facility] Glucose 95 mg/dL (70-99) BUN 27 mg/dL High (6-20) Creatinine 1.3 mg/dL High (0.5-1. 0) Sodium 141 mmol/L (133-14 5) Potassium 4.3 mmol/L (3.6-5. 2) Chloride 103 mmol/L (98-107 ) Bicarbonate 27 mmol/L (22-29) Anion Gap 11 (4-17) Albumin 4.5 GM/DL (3.4-4. 8) Calcium 10.5 mg/dL (8.6-10 .5) Bilirubin,Total <0.2 mg/dL (0-1. 2) Total Protein 7.1 GM/DL (6.2-8. 2) Ag Ratio 1.7 Ast 12 U/L (0-32) Alk Phos 105 U/L High (35-104 ) Alt 9 U/L (0-33) Estimated GFR Creatinine 49 ML/MIN/1.7 3M2 11 Lipid Panel 10/27/2022 [facility] Cholesterol, Total 204 mg/dL High (<200) Triglyceride 113 mg/dL (<150) HDL Chol 53 mg/dL (>39) LDL Cholesterol, Calculated 128 mg/dL (0-130) Non HDL Cholesterol (Calc) 151 mg/dL (<160) Hemoglobin A1c 10/27/2022 [facility] Hemoglobin A1c 6.0 % High (4.0-5. 6) 12 Complete Abc With Diff 10/27/2022 [facility] WBC 10.7 K/MM3 (4.0-11 .0) RBC 4.53 M/MM3 (4.20-5 .40) HGB 11.9 GM/DL (11.7-1 5.5) HCT 38.7 % (35.7-4 5.8) MCV 85.4 FL (80.0-1 00.0) MCH 26.3 pg Low (27.0-3 4.0) MCHC 30.7 g/dL Low (33.0-3 7.0) PLT 353 K/MM3 (150-46 0) RDW-SD 43.0 FL (<47.0) MPV 9.9 FL (9.4-12 .4) Automated NRBC 0.0 #/100WBC'S Abs. NRBC 0.0 K/MM3 Neut # 7.5 K/MM3 High (1.3-7. 0) Lymph # 2.3 K/MM3 (0.8-3. 1) Arroyo# 0.7 K/MM3 (0.4-0. 9) Eo # 0.1 K/MM3 (0.0-0. 4) Baso # 0.0 K/MM3 (0.0-0. 1) Abs. Imm Gran 0.1 K/MM3 Neut 70.3 % (44-76) Lymph 21.4 % (15-43) Monocyte 6.6 % (4.5-10 .5) Eo 0.9 % (0-6) Baso 0.1 % (0-2) Imm Gran 0.7 % 1 Verified by repeat analysis 2 Prediabetes: 5.7 - 6 .4 Diabetes: >6.4 Glycemic control for adults with diabetes: <7.0 3 Vitamin D deficiency has been defined by the [place] [employer] and an Endocrine Society practice guideline as a level of serum 25-OH vitamin D less than 20 ng/mL (1,2). The Endocrine Society went on to further define vitamin D insufficiency as a level between 21 and 29 ng/mL (2). 1. IOM ([place] of [employer]). 2010. Dietary reference intakes for calcium and D. [place]: The National Academies Press. 2. Bucky MF, Naresh NC, Jackie ARGUELLO, et al. Evaluation, treatment, and prevention of vitamin D deficiency: an Endocrine Society clinical practice guideline. JCEM. 2010; 96(7):1911-30. 4 Verified by repeat analysis 5 Reference range: 0 t o 378 Unit: nmol/L (NOTE) This test was developed and its performance characteristics determined by [facility]. It has not been cleared or approved by the Food and Drug Administration. Test performed at [facility], [address] [place] [address], [place] [address] 6 MONITORING: In known diabetic patients, hemoglobin A1c targets should be discussed with health care provider. DIAGNOSTIC USE: The [place] Diabetes Association (ADA) and the World Health Organization (WHO) recommend the use of HbA1c to diagnose diabetes using a threshold of 6.5%. Patients who have an HbA1c between 5.7% and 6.4% are considered at increased risk for developing diabetes in the future. CAUTION: Falsely low HbA1c results may be observed in patients with hemolytic anemia, homozygous forms of abnormal hemoglobin (e.g. SS, CC, SC), , recent blood loss or hemoglobin F greater than 7%. Fructosamine may be used as an alternate test in these cases. REFERENCE: ADA: Standards of Medical Care in Diabetes 2020, The Journal of Clinical and Applied Research and Education Volume 43, Supplement 1 7 Creatinine based est imated glomerular filtration (eGFR) in adults is calculated using the National Kidney Foundation recommended 2021 CKD-EPI equation. Estimates GFR from serum creatinine, age and sex. 8 CLEAR 9 Creatinine based est imated glomerular filtration (eGFR) in adults is calculated using the National Kidney Foundation recommended 2021 CKD-EPI equation. Estimates GFR from serum creatinine, age and sex. 10 CLEAR 11 Creatinine based est imated glomerular filtration (eGFR) in adults is calculated using the National Kidney Foundation recommended 2021 CKD-EPI equation. Estimates GFR from serum creatinine, age and sex. 12 MONITORING: In known diabetic patients, hemoglobin A1c targets should be discussed with health care provider. DIAGNOSTIC USE: The [place] Diabetes Association (ADA) and the World Health Organization (WHO) recommend the use of HbA1c to diagnose diabetes using a threshold of 6.5%. Patients who have an HbA1c between 5.7% and 6.4% are considered at increased risk for developing diabetes in the future. CAUTION: Falsely low HbA1c results may be observed in patients with hemolytic anemia, homozygous forms of abnormal hemoglobin (e.g. SS, CC, SC), , recent blood loss or hemoglobin F greater than 7%. Fructosamine may be used as an alternate test in these cases. REFERENCE: ADA: Standards of Medical Care in Diabetes 2020, The Journal of Clinical and Applied Research and Education Volume 43, Supplement 1 Procedures Date Code Description Status 08/20/2024 63858 Collection Of Venous Blood B y Venipuncture Completed 11/16/2023 85654 Collection Of Venous Blood B y Venipuncture Completed 06/07/2023 65521 Collection Of Venous Blood B y Venipuncture Completed 10/27/2022 90076 Collection Of Venous Blood B y Venipuncture Completed Medical Devices Description No Information Available Encounters Type Date Location Provider Dx Diagnosis Office Visit 08/20/2024 9:00a Main Office Cally Dietz M.D. E66.01 Morbid (severe) obesity due to excess calories I10 Essential (primary) hypertension R73.03 Prediabetes G43.009 Migraine w/o aura, n ot intractable, w/o status migrainosus K21.9 Gastro-esophageal re flux disease without esophagitis F41.1 Generalized anxiety disorder F33.0 Major depressive dis order, recurrent, mild J45.40 Moderate persistent asthma, uncomplicated D05.11 Intraductal carcinom a in situ of right breast Z68.41 Body mass index [BMI ] 40.0-44.9, adult Assessments Date Code Description Provider 08/20/2024 E66.01 Morbid (severe) obesity due to excess calories Cally Dietz M.D. 08/20/2024 I10 Essential (primary) hyperten dee Cally Dietz M.D. 08/20/2024 R73.03 Prediabetes Cally Quesada M.D. 08/20/2024 G43.009 Migraine without aura, not intractable, without status migrainosus Cally Dietz M.D. 08/20/2024 K21.9 Gastro-esophagea l reflux disease without esophagitis Cally Dietz M.D. 08/20/2024 F41.1 Generalized anxiety disorder Cally Dietz M.D. 08/20/2024 F33.0 Major depressive disorder, recurrent, mild Cally Dietz M.D. 08/20/2024 J45.40 Moderate persist ent asthma, uncomplicated Cally Dietz M.D. 08/20/2024 D05.11 Intraductal carc inoma in situ of right breast Cally Dietz M.D. 08/20/2024 Z68.41 Body mass index [BMI] 40.0-44.9, adult Cally Dietz M.D. Plan of Treatment Future Appointment(s):* 12/13/2024 3:15 pm - Cally Dietz M.D. at Main Office 08/20/2024 - Cally Dietz M.D.* E66.01 Morbid (severe) obesity due to excess calories * I10 Essential (primary) hypertension * R73.03 Prediabetes * G43.009 Migraine without aura, not intractable, without status migrainosus * K21.9 Gastro-esophageal reflux disease without esophagitis * F41.1 Generalized anxiety disorder * F33.0 Major depressive disorder, recurrent, mild * J45.40 Moderate persistent asthma, uncomplicated * D05.11 Intraductal carcinoma in situ of right breast * Z68.41 Body mass index [BMI] 40.0-44.9, adult Functional Status Description No Information Available Mental Status Description No Information Available Referrals Description No Information Available
== END 2024-11-29 14:15 | disposition home or self-care (01) ==
LOC: HO.HPS 13:33
PROVIDERS: PCP Internal Medicine Endocrinology, Diabetes & Metabolism; Visit Provider Hospitalist
DX: J45.40 Moderate persistent asthma, uncomplicated (principal); J30.9 Allergic rhinitis, unspecified; R21 Rash and other nonspecific skin eruption; C50.919 Malignant neoplasm of unspecified site of unspecified female breast; T78.40XA Allergy, unspecified, initial encounter
CPT/HCPCS: 99214